=== PATIENT | male | born 1955 | race Caucasian/White ===

== ENCOUNTER → 2016-07-05 | Outpatient (CLI) | payer BC ==
[2010-10-03 12:01] VITALS: BP 123/76
--- NOTE | 2016-07-05 15:25 | DI ---
PA /LATERAL CHEST X-RAY, 07/05/2016 1:48 PM : Clinical History: Cough. Previous Exam: 01/07/2007. There is no acute soft tissue or bony abnormality. Heart size is normal. Lungs are clear. Mediastinal structures are normal. There are no pulmonary nodules. Reading: Normal chest x-ray.
== END ==
LOC: MOB RAD 14:50
PROVIDERS: ATTEND Physician Assistant Medical
DX: R05 Cough (principal); J98.8 Other specified respiratory disorders
CPT/HCPCS: 71020

== ENCOUNTER → 2016-08-05 | Outpatient (CLI) | payer BC ==
[2010-10-03 12:01] VITALS: BP 123/76
--- NOTE | 2016-08-05 11:41 | DI ---
MRI RIGHT SHOULDER SCAN, 08/05/2016 7:58 AM: Clinical History: Right rotator cuff tear arthropathy. Previous Exam: None at this facility. Technique: Axial, coronal, and sagittal fat saturated PD; axial gradient FE; coronal fat saturatedT2 weighted; sagittal T2 weighted. There is no soft tissue edema or abnormal bone signal pattern. Moderate arthrosis of the AC joint is present with fluid in the AC joint. There is a type II acromion. There is an articular surface tear i n the anterior aspect of the supraspinatus tendon at the attachment to the humeral head. This tear me asures approximately 10 x 5 mm in transverse and AP dimension. There are 2 tandem articular surface t ears in the infraspinatus tendon. The smaller tear measures 2 x 2 mm and is at the attachment of the tendon to the humeral head. More toward the myotendinous junction of the infraspinatus tendon is a se cond tear that measures 8 x 3 mm in the transverse and AP dimensions. There is tendinosis of the subs capularis and teres minor tendons and the tendon of the long head of the biceps muscle in the rotator interval. Fluid is present in the tendon sheath of the extra-articular portion of the tendon of the long head of the biceps muscle consistent with tenosynovitis. 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 In the subscapular recess, the rotator interval, in the axillary pouch and this distribution is synovitis can be seen with adhesive capsulitis. There has been effacement and remodeling of the glenoid fossa with subchondral cyst in t he humeral head as well as bony spurring inferiorly. No discernible cartilage is visible in the gleno humeral joint space. There is a prominent anterior band of the IGHL with a high attachment, a cordlik e MGHL, and absence of the labrum in the anterosuperior quadrant. The remaining 3 quadrants show a la bral tear. This would correspond to a type IX SLAP tear. Readin. There is remodeling of the glenoid fossa and humeral head with a bony spur along the inferior mar gin of the humeral head. There is virtually complete loss of cartilage both on the humeral head and t he glenoid fossa. 2. There are partial tears in the infraspinatus and supraspinatus tendons as above. Synovitis is pre sent in the subscapular recess, the rotator interval, and the axillary pouch, and involvement of all 3 areas with synovitis can be seen with adhesive capsulitis. There is tendinosis of the subscapular a nd teres minor tendons and the tendon of the long head of the biceps muscle. 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 Moderate arthrosis is present in the AC joint. 3. There is a type IX SLAP tear. There is absence of the labrum in the anterosuperior quadrant with a high attachment of the anterior limb of the IGHL and with a cordlike MGHL. There is a type II acrom ion.
== END ==
LOC: MRI 07:55
DX: M12.811 Other specific arthropathies, not elsewhere classified, right shoulder (principal); M24.111 Other articular cartilage disorders, right shoulder; S43.431A Superior glenoid labrum lesion of right shoulder, initial encounter; S46.011A Strain of muscle(s) and tendon(s) of the rotator cuff of right shoulder, initial encounter; M19.011 Primary osteoarthritis, right shoulder; M65.811 Other synovitis and tenosynovitis, right shoulder
CPT/HCPCS: 73221

== ENCOUNTER → 2016-09-06 | Outpatient (CLI) | payer BC ==
[2010-10-03 12:01] VITALS: BP 123/76
== END ==
LOC: LAB 11:36
PROVIDERS: ATTEND Chiropractor
DX: Z01.812 Encounter for preprocedural laboratory examination (principal); M54.5 Low back pain
CPT/HCPCS: 36415; 82565; 84520

== ENCOUNTER → 2016-09-09 | Outpatient (CLI) | payer BC ==
[2010-10-03 12:01] VITALS: BP 123/76
--- NOTE | 2016-09-09 16:02 | DI ---
MRI LUMBAR SPINE SCAN WITHOUT AND WITH IV CONTRAST, 09/09/2016 9:57 AM: Clinical History: Low back pain. Previous Exam: 09/12/2011. Sequences: Pre and post contrast sagittal and axial T1; sagittal T2 weighted and axial PD scans. Contrast Dose: 20 mL of ProHance (279.3 mg/mL) The vertebral bodies are of normal height and size. There is mild to moderate disc space narrowing at L1-2, L3-4, and L4-5, with severe narrowing at L5-S1. All lumbar disc spaces show desiccation change . The cord terminates at T12, and the conus medullaris is normal. There is a bulging but not herniat ed disc without canal or significant neural foraminal stenosis at T10-11. T11-12 and T12-L1 disc spac es are normal. The L1-2 through L3-4 disc spaces all show minimally bulging but not herniated discs w ithout canal or neural foraminal stenosis. Degenerative arthritic changes are present bilaterally in the L3-4 apophyseal joints. L4-5 shows loss of the epidural fat on the right side of the canal and th e previously noted extradural defect is no longer visible. There is loss of the epidural fat but ther e is no enhancing scar tissue. There is a bulging disc that is more prominent on the right side than the left without canal or significant neural foraminal stenosis. L5-S1 has a bulging but not herniate d disc without canal stenosis or neural foraminal stenosis. Readin. 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 There is loss of epidural fat at this locati on but there is no enhancing tissue to suggest scar tissue formation. There is a bulging disc predomi nantly on the right side without canal or significant neural foraminal stenosis. 2. There are bulging but not herniated discs without canal or neural foraminal stenosis at T10-11, L 1-2 through L3-4, and at L5-S1. 3. The disc spaces at T11-12 and T12-L1 are normal.
== END ==
LOC: MRI 09:51
PROVIDERS: ATTEND Chiropractor
DX: M54.5 Low back pain (principal); M47.817 Spondylosis without myelopathy or radiculopathy, lumbosacral region; M47.815 Spondylosis without myelopathy or radiculopathy, thoracolumbar region
CPT/HCPCS: 72158; A9579

== ENCOUNTER → 2016-11-12 | Outpatient (CLI) | payer BC ==
[2010-10-03 12:01] VITALS: BP 123/76
[2016-11-12 18:02] LABS: BILIRUBIN,URINE NEGATIVE (NEG); CLARITY,URINE CLEAR (CLEAR); COLOR,URINE YELLOW; GLUCOSE, URINE (UA) NEGATIVE (NEG); NITRATE,URINE NEGATIVE (NEG); OCCULT BLOOD,URINE SMALL (NEG); PH,URINE 6.5 (5.0-8.5); PROTEIN,URINE NEGATIVE (NEG); UROBILINOGEN,URINE 0.2 mg/dL (0.2)
[2016-11-12 18:13] LABS: RBC,URINE 0-2 /hpf; URINE SAMPLE TYPE CLEAN CATCH URINE; WBC,URINE 0
== END ==
LOC: MOB LAB 15:47
DX: E11.9 Type 2 diabetes mellitus without complications (principal); E66.3 Overweight; E03.9 Hypothyroidism, unspecified; E55.9 Vitamin D deficiency, unspecified; E78.5 Hyperlipidemia, unspecified; N52.9 Male erectile dysfunction, unspecified; R31.29 Other microscopic hematuria; M25.511 Pain in right shoulder; M51.36 Other intervertebral disc degeneration, lumbar region; G25.81 Restless legs syndrome; G47.30 Sleep apnea, unspecified
CPT/HCPCS: 81001